=== PATIENT | female | born 1970 | race Caucasian/White ===

== ENCOUNTER → 2017-07-04 | Day surgery (SDC) | payer OTHER ==
[2017-06-15 10:25] VITALS: BMI 46.0
[~2017-07-04] VITALS: Ht 154.9 cm; Wt 111.4 kg
[~2017-07-04] MED LIST: ATROPINE SULFATE 0.1 MG/ML 5ML SYR IV PRN; BACITRACIN 50000 UNIT VIAL ONE; BACITRACIN OINT 15 GM TUBE ONE; CEFAZOLIN 2000MG IV PUSH 15 ML IV SCH; CEFAZOLIN SOD 2000MG/15 ML IV PUSH IV ONE; CEPH500C2 PO; CLR10 PO; COCAINE HCL 4% / 4 ML VIAL EXT ONE; COCAINE HCL 4% / 4 ML VIAL ONE; CRAN1CAP PO; CYAN500T PO; DEXAMETHASONE SOD INJ 4 MG/ML VIAL ONE; DTR/5 PO; EpHEDrine SULFATE INJ 50 MG/ML AMP IV PRN; FENTANYL CITRATE INJ 50 MCG/1 ML 2 ML VIAL IV PRN; FENTANYL CITRATE INJ 50 MCG/1 ML 2 ML VIAL ONE; FLOSEAL HEMOSTATIC MATRIX 5ML TOP ONE; FLUT0.15; GLYCOPYRROLATE INJ 0.2 MG/ML VIAL ONE; HYDR-5803 PO; HYDROCODONE/ACETAMINOPHEN 7.5/325MG TAB PO ONE; HYDROmorphone INJ 1 MG/ML SYR IV PRN; HydrALAZINE HCL 20 MG/ML VIAL ONE; LABETALOL HCL IV 5 MG/ML 20ML IV ONE; LABETALOL HCL IV 5 MG/ML 20ML IV PRN; LACTATED RINGER'S 1000ML 1,000 ML IV SCH; LARYING-O-JET KIT (LTA) ONE; LEVO200T PO; LIDOCAINE HCL 2% 2 ML VIAL (20MG/ML) ONE; LIDOCAINE/EPINEPHRINE 1% 20 ML VIAL ONE; LINA1CAP PO; MAGN400T6 PO; MEPERIDINE HCL 25 MG/ML CARP IV PRN; MIDAZOLAM HCL 1 MG/ML 2ML VIAL ONE; MULT-506 PO; MoRPHine SULFATE 2 MG/ML CARP IV PRN; NEOSTIGMINE METHYLSULFATE 5 MG/5 ML SYR ONE; NICO14DI9 TOP; NURSING VERBAL MED ORDER ONE; ONDANSETRON INJ 2 MG/ML 2 ML VIAL IV PRN; ONDANSETRON INJ 2 MG/ML 2 ML VIAL ONE; OXYMETAZOLINE HCL 0.05% NA SPR 15 ML BTL ONE; PARO1TAB27 PO; PHENYLEPHRINE 100MCG/ML 5ML SYR ONE; PROPOFOL IV EMULSION 10 MG/ML 20 ML VIAL IV ONE; RANI150T3 PO; ROCURONIUM BROMIDE 10 MG/ML 5 ML VIAL IV ONE; ROPI0.5T15 PO; SALINE NASAL GEL (AYR) 14.1 GM TUBE PRN; SODIUM CHLORIDE 0.9% 1000ML 1,000 ML IV SCH; SUMA50TA15 PO; THROMBIN 5000 UNITS KIT ONE; TOPI50TA16 PO; VALA1TAB2 PO; VNTHFA/IN INH
[2017-07-04 07:25] VITALS: BP 112/56; PULSE 62; TEMP 36.8; O2SAT 93; BMI 46.0
[2017-07-04 07:56] VITALS: Ht 154.9 cm; Wt 111.4 kg
--- NOTE | 2017-07-04 08:17 | History & Physical Bridge Note ---
H&P Re-Evaluation Bridge Note: I have examined the patient, reviewed the History & Physical and in the interval since the performance of the History & Physical I have noted the following changes of clinical significance: No changes noted
--- NOTE | 2017-07-04 08:24 | Discharge Instructions ---
Discharge Instructions Date of Service Jul 04, 2017. Admission Reason for Admission: Chronic Maxillary Sinusitis, Deviated Septum, B/L Discharge Discharge Diagnosis / Problem: Recurrent sinusitis, deviated nasal septum, turbinate hypertrophy. Discharge Goals Goal(s): Improve function Activity Recommendations Activity Limitations: as noted below Lifting Limitations: no more than 5 pounds Exercise/Sports Limitations: none May Resume Sexual Activity: after one week Shower/Bathe: no limitations Driving or Machine Use: No driving a motor vehicle while taking a narcotic. . Current Hospital Diet Patient's current hospital diet: Discharge Diet Recommended Diet: Regular Diet Pending Studies Studies pending at discharge: no Medical Emergencies . Who to Call and When: Medical Emergencies: If at any time you feel your situation is an emergency, please call 911 immediately. . Non-Emergent Contact Non-Emergency issues call your: Specialist Call Non-Emergent contact if: temperature is above 101.5 . . "Provider Documentation" section prepared by Titus Reagan. . VTE Core Measure Inpt VTE Proph given/why not?: SCD's
--- NOTE | 2017-07-04 10:46 | [facility] Post Operative Brief Note ---
Immediate Operative Summary Operative Date Jul 04, 2017. Pre-Operative Diagnosis Chronic sinusitis, deviated nasal septum, bilateral inferiorturbinate hypetrophy. Post-Operative Diagnosis Same Procedure(s) Performed Bilateral Anterior Ethmoidectomy, Left Maxillary Sinusotomy with Removal of Tissue, Right Maxillary Sinusotomy, Septoplasty, Bilateral Inferior Turbinate Reduction Surgeon Dr Reagan Exhaust Machine Operator Surgeon(s) none Estimated Blood Loss 75ml Findings Consistent with Post-Op Diagnosis Specimens none Drains None Anesthesia Type General Complication(s) none Disposition Accompanied Pt To Recover: no Disposition: Recovery Room / PACU
--- NOTE | 2017-07-04 11:19 | Anesthesiology Progress Note ---
Anesthesia Post Op Note Date & Time Jul 04, 2017 at 11:19 Vital Signs Pain Intensity: 0 Vital Signs Past 12 Hours Date Time Temp Pulse Resp B/P (MAP) Pulse Ox O2 Delivery O2 Flow Rate FiO2 07/04/17 11:10 68 16 137/74 97 Oxymask 3 07/04/17 11:00 68 16 120/45 96 Oxymask 5 07/04/17 10:51 36.1 74 18 141/85 93 Oxymask 10 07/04/17 07:25 36.8 62 18 112/56 (74) 93 Room Air Notes Mental Status: alert / awake / arousable, participated in evaluation Pt Amnestic to Procedure: Yes Nausea / Vomiting: adequately controlled Pain: adequately controlled Airway Patency, RR, SpO2: stable & adequate BP & HR: stable & adequate Hydration State: stable & adequate Anesthetic Complications: no major complications apparent
[2017-07-04 11:30] VITALS: BP 116/72; PULSE 60; TEMP 36.6; O2SAT 98
[2017-07-04 12:05] VITALS: BP 138/62; PULSE 82; O2SAT 96
--- NOTE | 2017-07-04 12:33 | OPERATIVE REPORT ---
DATE OF OPERATION: 07/04/2017 SURGEON: Dr. Reagan. ANESTHESIA: General via endotracheal tube. PROCEDURE PERFORMED: 1. Nasal and sinus surgical endoscopy using image guidance resulting in: A. Bilateral anterior ethmoidectomy (31116-08). B. Left maxillary sinusotomy with removal of retention cyst (53104). C. Right maxillary sinusotomy (76153). 2. Septoplasty (94308). 3. Bilateral inferior turbinate reduction (19615-72). INDICATIONS FOR THE PROCEDURE: This is a 47-year-old woman with recurrent acute sinusitis meeting criteria for nasal and sinus surgical endoscopy and she also suffers from nasal airway obstruction secondary to a deviated nasal septum and turbinate hypertrophy. Given the failure of medical management, the patient has opted for surgical management. A full informed consent including the indications, risks, benefits, and alternatives was provided in a relaxed office setting. There was an opportunity for questions and answers. PREOPERATIVE DIAGNOSES: 1. Chronic sinusitis. 2. Deviated nasal septum. 3. Bilateral inferior turbinate hypertrophy. POSTOPERATIVE DIAGNOSES: 1. Chronic sinusitis. 2. Deviated nasal septum. 3. Bilateral inferior turbinate hypertrophy. BLOOD LOSS: 75 mL. SPECIMENS SENT: None. COMPLICATIONS: None. SPONGE AND NEEDLE COUNT: Correct at the end the case. DESCRIPTION OF PROCEDURE: The patient had an uneventful endotracheal intubation via the PLASTIC EXTRUSION OPERATOR. The table was placed in reverse Trendelenburg position, the oropharynx was packed with a vaginal pack soaked in saline. The septum, inferior turbinates, middle turbinates, and anterior ethmoidal bullae were injected with 20 mL of 1% lidocaine 1:100,000 parts epinephrine. A 10 mL control syringe and a 25 gauge spinal needle were used to achieve this. After the injections, the middle meatus was packed with 2 neurosurgical pledgets soaked in 4% cocaine. An additional 2 neurosurgical pledgets per side were soaked in 0.05% oxymetazoline and placed in the nose. Equipment was readied, and the patient was draped while I scrubbed. About 5 minutes was allowed for vasoconstriction. First, attention was directed to the septum. A [place] incision was made on the left side of the nose and a mucoperichondrial flap was elevated. The quadrangular cartilage was disarticulated from the perpendicular plate of the ethmoid and the vomer using a [place] elevator. A small strip of quadrangular cartilage at its attachment of the maxillary crest was removed. Relaxing incisions were made in the quadrangular cartilage. Also, a deviated portion of the vomer and the left nasal airway was fractured back to the midline. The septum, which had previously been deviated to the left nasal airway was now in the midline. The incision was closed with running 4-0 chromic suture. After the sinus work was completed, Xomed bivalve splints were placed on each side of the septum, and held in place with a transseptal 2-0 silk suture. After completing the septoplasty, attention was directed to the inferior turbinates bilaterally. The identical procedure was done for each inferior turbinate. Using the microdebrider, the lateral mucosa of each inferior turbinate and submucosal bone was largely removed with the microdebrider. Remaining medial surface mucosa was then decreased in size using the Arthrocare coblation plasma 1 on a setting of 6 for coblation. There were 2 mucosal passes made on the medial surface of each inferior turbinate lasting 10 seconds each. There was 1 pass made on the remaining lateral surface lasting 10 seconds. This effected a nice reduction in inferior turbinate size bilaterally. The remaining part of the procedure was performed using the Fronto navigation system. The technique involved use of a 30 endoscope with surgical loops and surgical headlight used interchangeably. The anterior portion of the each middle turbinate was removed using first a curved tonsillar hemostat. Then, turbinate scissors were used to cut on the crush line. This provided excellent approach to the anterior ethmoidal bulla bilaterally which was entered with straight suction and then opened with the microdebrider. Bilaterally, the maxillary sinuses were entered with a curved suction tip and backbiting forceps were used to create wide sinusotomies. No tissue was removed from the right maxillary sinus. On the left maxillary sinus, there was a retention cyst that was removed with a curved [employer]uspheretronix microdebrider. The previous microdebrider work had been with a straight microdebrider. The curved microdebrider allowed for easy removal of the retention cyst of the left maxillary sinus. Any nuisance bleeding was stopped with suction electrocautery. The ethmoid defect was filled with FloSeal followed by a Nasopore, impregnated in bacitracin solution. Telfa was wrapped around straws and then dipped in bacitracin ointment and placed along the floor of the nose bilaterally. The patency of each straw was checked with a straight suction tip and the straws were patent. Mustache dressing was positioned. I removed the vaginal pack placed at the start of the case from the oropharynx. The oropharynx was irrigated with saline and I checked the oropharynx by suctioning with the [employer] suction to make sure there was no blood coming down from the nasopharynx to the oropharynx. There were no blood clots in the oropharynx or hypopharynx. There was no loose bone matter. I placed an oral airway under direct visualization for the PLASTIC EXTRUSION OPERATOR. With the patient breathing on her own, she was extubated and transported to recovery in no apparent distress. SUMMARY OF FINDINGS: 1. Deviated septum to the left side. 2. Bilateral inferior turbinate hypertrophy. 3. Minimally edematous ethmoid sinus mucosa. 4. Right maxillary sinus mucosa within normal limits. 5. A retention cyst, left maxillary sinus. CONDITION: The patient was transported to recovery in no apparent distress. I attest to the content of the Intraoperative Record and any orders documented therein. Any exceptions are noted below. MTDD
[2017-07-04 12:35] VITALS: BP 128/64; PULSE 80; O2SAT 96
[2017-07-04 13:05] VITALS: BP 126/65; PULSE 78; O2SAT 96
== END | disposition home or self-care (01) ==
LOC: C.ACU 07:17
PROVIDERS: ATTEND Otolaryngology
DX: J32.2 Chronic ethmoidal sinusitis (principal); J34.2 Deviated nasal septum; G47.33 Obstructive sleep apnea (adult) (pediatric); F17.210 Nicotine dependence, cigarettes, uncomplicated; E66.01 Morbid (severe) obesity due to excess calories; K21.9 Gastro-esophageal reflux disease without esophagitis; N30.40 Irradiation cystitis without hematuria; Z85.828 Personal history of other malignant neoplasm of skin; E03.9 Hypothyroidism, unspecified; K58.9 Irritable bowel syndrome, unspecified; Z85.850 Personal history of malignant neoplasm of thyroid; Z99.89 Dependence on other enabling machines and devices; Z90.710 Acquired absence of both cervix and uterus; Z90.49 Acquired absence of other specified parts of digestive tract

== ENCOUNTER 2017-09-07 12:47 | Emergency (ER) | payer OTHER ==
[~2017-09-07] VITALS: Ht 157.5 cm; Wt 112.0 kg
[~2017-09-07 12:47] MED LIST changes: -ATROPINE SULFATE 0.1 MG/ML 5ML SYR IV PRN; -BACITRACIN 50000 UNIT VIAL ONE; -BACITRACIN OINT 15 GM TUBE ONE; -CEFAZOLIN 2000MG IV PUSH 15 ML IV SCH; -CEFAZOLIN SOD 2000MG/15 ML IV PUSH IV ONE; -COCAINE HCL 4% / 4 ML VIAL EXT ONE; -COCAINE HCL 4% / 4 ML VIAL ONE; -DEXAMETHASONE SOD INJ 4 MG/ML VIAL ONE; -EpHEDrine SULFATE INJ 50 MG/ML AMP IV PRN; -FENTANYL CITRATE INJ 50 MCG/1 ML 2 ML VIAL IV PRN; -FENTANYL CITRATE INJ 50 MCG/1 ML 2 ML VIAL ONE; -FLOSEAL HEMOSTATIC MATRIX 5ML TOP ONE; -GLYCOPYRROLATE INJ 0.2 MG/ML VIAL ONE; -HYDROCODONE/ACETAMINOPHEN 7.5/325MG TAB PO ONE; -HYDROmorphone INJ 1 MG/ML SYR IV PRN; -HydrALAZINE HCL 20 MG/ML VIAL ONE; -LABETALOL HCL IV 5 MG/ML 20ML IV ONE; -LABETALOL HCL IV 5 MG/ML 20ML IV PRN; -LACTATED RINGER'S 1000ML 1,000 ML IV SCH; -LARYING-O-JET KIT (LTA) ONE; -LIDOCAINE HCL 2% 2 ML VIAL (20MG/ML) ONE; -LIDOCAINE/EPINEPHRINE 1% 20 ML VIAL ONE; -MEPERIDINE HCL 25 MG/ML CARP IV PRN; -MIDAZOLAM HCL 1 MG/ML 2ML VIAL ONE; -MoRPHine SULFATE 2 MG/ML CARP IV PRN; -NEOSTIGMINE METHYLSULFATE 5 MG/5 ML SYR ONE; -NURSING VERBAL MED ORDER ONE; -ONDANSETRON INJ 2 MG/ML 2 ML VIAL IV PRN; -ONDANSETRON INJ 2 MG/ML 2 ML VIAL ONE; -OXYMETAZOLINE HCL 0.05% NA SPR 15 ML BTL ONE; -PHENYLEPHRINE 100MCG/ML 5ML SYR ONE; -PROPOFOL IV EMULSION 10 MG/ML 20 ML VIAL IV ONE; -ROCURONIUM BROMIDE 10 MG/ML 5 ML VIAL IV ONE; -SALINE NASAL GEL (AYR) 14.1 GM TUBE PRN; -SODIUM CHLORIDE 0.9% 1000ML 1,000 ML IV SCH; -THROMBIN 5000 UNITS KIT ONE
[2017-09-07 12:53] VITALS: TEMP 36.7; Ht 157.5 cm; Wt 112.0 kg
[2017-09-07] MEDS ORDERED: SODIUM CHLORIDE 0.9% 1000ML 1,000 ML IV STA (14:04)
[2017-09-07 14:32] LABS: BASO % 0.4 %; BASO ABS # 0.03 K/uL (0-0.2); EOS % 1.5 %; EOS ABS # 0.11 K/uL (0-0.5); HEMATOCRIT 40.7 % (37-47); HEMOGLOBIN 14.3 g/dL (12.0-16.0); IG# 0.03 K/uL (0.00-0.02); LYMPH % 39.9 %; LYMPH ABS # 2.96 K/uL (1.2-3.4); MEAN CELL VOLUME 89.6 fL (80-100); MEAN CORPUSCULAR HEMOGLOBIN 31.5 pg (25-34); MEAN CORPUSCULAR HGB CONC 35.1 g/dl (32-36); MEAN PLATELET VOLUME 10.6 fL (7.4-10.4); MONO % 7.7 %; MONO ABS # 0.57 K/uL (0.11-0.59); NEUT % 50.1 %; NEUT ABS # 3.72 K/uL (1.4-6.5); PLATELET COUNT 236 K/uL (130-400); RED CELL DISTRIBUTION WIDTH SD 42.3 fL (36.4-46.3); WHITE BLOOD COUNT 7.42 K/uL (4.8-10.8)
--- NOTE | 2017-09-07 14:47 | DIAGNOSTIC IMAGING REPORT ---
L SHOULDER MIN 2 VIEWS ROUTINE HISTORY: 47 years-old Female L shoulder and neck pain acute left shoulder pain COMPARISON: Chest radiograph of same day TECHNIQUE: 3 views of the left shoulder FINDINGS: Mild degenerative changes about the AC joint. No acute fracture, dislocation or significant glenohumeral degenerative changes. Imaged lung aguilera appear clear. No opaque foreign body or acute displaced rib fracture. IMPRESSION: 1. No acute fracture or dislocation. 2. Mild degenerative changes of the left AC joint. The above report was generated using voice recognition software. It may contain grammatical, syntax or spelling errors. Electronically signed by: Kolby Bush M.D. 09/07/2017 2:46 PM Dictated Date/Time: 09/07/2017 2:45 PM
--- NOTE | 2017-09-07 14:48 | DIAGNOSTIC IMAGING REPORT ---
CHEST 1 VW FRONT-NOT PORTABLE HISTORY: 47 years-old Female CHEST PAIN acute atypical chest pain COMPARISON: Left shoulder radiographs of same day TECHNIQUE: PA view of the chest FINDINGS: Cardiomediastinal and hilar silhouettes are within normal limits. There is no pneumothorax, pleural effusion, focal airspace consolidation or overt pulmonary edema. The bones of the chest appear grossly intact. IMPRESSION: No acute process. The above report was generated using voice recognition software. It may contain grammatical, syntax or spelling errors. Electronically signed by: Kolby Bush M.D. 09/07/2017 2:47 PM Dictated Date/Time: 09/07/2017 2:46 PM
[2017-09-07 14:51] LABS: ALBUMIN 3.8 gm/dl (3.4-5.0); ALT/SGPT 54 U/L (12-78); AST/SGOT 27 U/L (15-37); BLOOD UREA NITROGEN 15 mg/dl (7-18); CALCIUM 9.1 mg/dl (8.5-10.1); CARBON DIOXIDE 27 mmol/L (21-32); CREATININE 0.89 mg/dl (0.60-1.20); GLUCOSE 81 mg/dl (70-99); LIPASE 71 U/L (73-393); POTASSIUM 3.5 mmol/L (3.5-5.1); SODIUM 138 mmol/L (136-145)
--- NOTE | 2017-09-07 14:51 | DIAGNOSTIC IMAGING REPORT ---
CERVICAL SPINE 6 VIEWS CLINICAL HISTORY: Neck pain and left shoulder pain. FINDINGS: AP, lateral, bilateral oblique, swimmer's, and odontoid views of the cervical spine are obtained. No prior studies are available for comparison at the time of dictation. The skeletal structures are well mineralized. There is no radiographic evidence of fracture or subluxation. The odontoid process and lateral masses appear intact on the open mouth view. The spinolaminar line is preserved. Vertebral body height and alignment are maintained. There is straightening of the cervical lordosis. Small anterior osteophytes are seen in the lower cervical spine. The spinous processes appear intact. The intervertebral disc spaces are maintained. A posterior disc osteophyte complex at C5-C6 may contribute to mild acquired compromise the central canal. There is no evidence of neuroforaminal stenosis on the oblique views. The prevertebral soft tissues are within normal limits. Visualized apical lung parenchyma appears clear. IMPRESSION: 1. No acute bony abnormality is seen involving the cervical spine. 2. Mild spondylotic change as above, greatest at C5-C6. Electronically signed by: Christian Perry M.D. 09/07/2017 2:49 PM Dictated Date/Time: 09/07/2017 2:48 PM
[2017-09-07 14:53] LABS: ALKALINE PHOSPHATASE 89 U/L (45-117); TOTAL PROTEIN 7.7 gm/dl (6.4-8.2)
[2017-09-07 16:01] VITALS: BP 101/54; PULSE 63; O2SAT 95
--- NOTE | 2017-09-07 20:45 | EMERGENCY ROOM VISIT NOTE ---
ED Visit Note First contact with patient: 13:33 Chief Complaint: Left arm pain. History of Present Illness: Ms. Barrios is a 47 year-old white female who ambulates into the ED accompanied by her mother complaining of left arm pain. Historically patient reports no history of individual cardiovascular disease or first-degree family coronary artery disease, but does report multiple grandparents on both sides of the family had heart disease of unspecified etiology. Patient's risk factors include obesity, tobacco use and dyslipidemia. Patient reports she awoke this morning her normal self and was getting ready for work when she reports she had a acute onset of left upper extremity pain. She reports her pain started in the forearm and gradually went into the upper arm, shoulder and then the upper left chest. She reports this episode lasted about 2 hours and then self resolved and we returned to additional times during the day. She describes her pain as a soreness sensation. Currently she rates her discomfort 4/10. Her pain is minimally aggravated with movements of the elbow and shoulder and with palpation of the mid forearm, proximal radius and left upper anterior chest. She has not identified any alleviating factors related to this discomfort. She has not taken any medications for her discomfort prior to arrival at the hospital. She denies any associated fevers, chills, sweats, skin eruptions, skin color changes, upper respiratory tract symptoms, wheezing, cough, shortness of breath, orthopnea, dependent edema, previous clots, claudication, cramping, recent surgery/inactivity/extended travel, abdominal pain, nausea, vomiting, diarrhea, constipation, rectal bleeding, black/tarry stools, urinary symptoms, back/flank pain. Review of Systems: As noted above in history of present illness. All body systems were reviewed and found to be negative as noted above. Past Medical History: Anxiety, hidradenitis, cystitis, sleep apnea, regional enteritis, irritable bowel syndrome, obesity, sinusitis, chronic rhinitis, nasal septum deviation, migraine headaches, skin cancer, cervical cancer, thyroid cancer with postsurgical hypothyroidism, esophageal reflux, status post carpal tunnel release, cholecystectomy, D&C, hysterectomy, section. Current Medications: Medications Dose Route/Sig Max Daily Dose Days Date Category Claritin (Loratadine) 10 Mg Tab 10 Mg PO QAM 06/15/17 Reported Multivitamin (Multivitamins) Tab 1 Tab PO HS 06/15/17 Reported Nicotine 14 Mg/24 Hr Dis 1 Patch TOP DAILY 06/15/17 Reported Flonase Allergy Relief (Fluticasone Propionate (Nasal)) 50 Mcg/Act Spr 2 Sprays NA QAM 06/15/17 Reported Vitamin B-12 (Cyanocobalamin) 500 Mcg Tab 500 Mcg PO QAM 06/15/17 Reported Ventolin Hfa (Albuterol) 200 Puffs/88336 Mcg Aers 2 Puffs INH Q6H PRN 06/15/17 Reported Mag-Ox (Magnesium Oxide) 400 Mg Tab 400 Mg PO QAM 06/15/17 Reported Valtrex (Valacyclovir Hcl) 1 Gm Tab 1,000 Mg PO BID PRN 06/15/17 Reported Linzess (Linaclotide) 145 Mcg Cap 145 Mcg PO QAM 06/15/17 Reported Zantac (Ranitidine HCl) 150 Mg Tab 150 Mg PO BID 06/15/17 Reported Ditropan (Oxybutynin Chloride) 5 Mg Tab 5 Mg PO HS 06/15/17 Reported Requip (Ropinirole HCl) 0.5 Mg Tab 0.5 Mg PO HS 06/15/17 Reported Imitrex (Sumatriptan Succinate) 50 Mg Tab 50 Mg PO PRN PRN 06/15/17 Reported Paxil (Paroxetine HCl) 20 Mg Tab 20 Mg PO QPM 06/15/17 Reported Topamax (Topiramate) 50 Mg Tab 50 Mg PO DAILY PRN 06/15/17 Reported Cranberry Concentrate (Cranberry-Vitamin C-Vitamin E) 1 Cap Cap 1 Cap PO QAM 06/15/17 Reported Synthroid (Levothyroxine Sodium) 200 Mcg Tab 200 Mcg PO QAM 06/15/17 Reported Allergies to Medications: Modafinil. Social History: Patient is currently employed; she feels safe in her home environment; she admits to tobacco use. Physical Examination: Vital Signs: Date Time Temp Pulse Resp B/P (MAP) Pulse Ox O2 Delivery O2 Flow Rate FiO2 09/07/17 16:01 63 22 101/54 95 Room Air 09/07/17 14:07 59 09/07/17 14:05 59 18 101/58 98 Room Air 09/07/17 12:53 36.7 63 16 143/87 100 Room Air GENERAL: 47-year-old female in mild distress due to pain, nontoxic-appearing, afebrile and hemodynamically stable. NEUROLOGICAL: Awake, alert and oriented to person, place and time. Answering questions appropriately and following commands. Normal gait. Good hand eye coordination. SKIN: Warm, dry and pink. No soft tissue eruptions or trauma noted. HEENT: Atraumatic and normocephalic. PERRLA. Sclera white and conjunctiva pink. Oral cavity moist and pink. Pharynx is nonerythematous or edematous. Speech normal. No lymphadenopathy. Trachea midline. No jugular venous distention. No carotid bruits. BACK: No tenderness over the bony spine. No CVA tenderness. THORAX: Lungs sounds are clear to auscultation and equal bilaterally with symmetrical chest wall. No wheezing, rales or rhonchi. No crepitus, tenderness , subcutaneous air or deformities noted. HEART: Regular rate and rhythm. No gallops, rubs or murmurs are appreciated. No lifts, heaves or thrills. PMI is not displaced. ABDOMEN: Obese, soft and nontender. Positive bowel sounds in all quadrants. No guarding, rigidity or organomegaly. EXTREMITIES: Moves all extremities well on command and with purpose. All distal neurovascular statuses are intact and equal bilaterally. No dependent edema or calf tenderness/cords. ED Course: Patient is assessed as noted above. Patient's medication list was reviewed. Laboratory Testing: Test 09/07/17 14:13 09/07/17 14:23 09/07/17 16:08 Range/Units White Blood Count 7.42 4.8-10.8 K/uL Red Blood Count 4.54 4.2-5.4 M/uL Hemoglobin 14.3 12.0-16.0 g/dL Hematocrit 40.7 37-47 % Mean Corpuscular Volume 89.6 80-100 fL Mean Corpuscular Hemoglobin 31.5 25-34 pg Mean Corpuscular Hemoglobin Concent 35.1 32-36 g/dl Platelet Count 236 130-400 K/uL Mean Platelet Volume 10.6 7.4-10.4 fL Neutrophils (%) (Auto) 50.1 % Lymphocytes (%) (Auto) 39.9 % Monocytes (%) (Auto) 7.7 % Eosinophils (%) (Auto) 1.5 % Basophils (%) (Auto) 0.4 % Neutrophils # (Auto) 3.72 1.4-6.5 K/uL Lymphocytes # (Auto) 2.96 1.2-3.4 K/uL Monocytes # (Auto) 0.57 0.11-0.59 K/uL Eosinophils # (Auto) 0.11 0-0.5 K/uL Basophils # (Auto) 0.03 0-0.2 K/uL RDW Standard Deviation 42.3 36.4-46.3 fL RDW Coefficient of Variation 13.0 11.5-14.5 % Immature Granulocyte % (Auto) 0.4 % Immature Granulocyte # (Auto) 0.03 0.00-0.02 K/uL Sodium Level 138 136-145 mmol/L Potassium Level 3.5 3.5-5.1 mmol/L Chloride Level 108 98-107 mmol/L Carbon Dioxide Level 27 21-32 mmol/L Anion Gap 3.0 3-11 mmol/L Blood Urea Nitrogen 15 7-18 mg/dl Creatinine 0.89 0.60-1.20 mg/dl Est Creatinine Clear Calc Drug Dose 93.4 ml/min Estimated GFR () 90.1 Estimated GFR (Non- 77.7 BUN/Creatinine Ratio 16.6 10-20 Random Glucose 81 70-99 mg/dl Calcium Level 9.1 8.5-10.1 mg/dl Total Bilirubin 0.3 0.2-1 mg/dl Direct Bilirubin < 0.1 0-0.2 mg/dl Aspartate Amino Transf (AST/SGOT) 27 15-37 U/L Alanine Aminotransferase (ALT/SGPT) 54 12-78 U/L Alkaline Phosphatase 89 45-117 U/L Total Protein 7.7 6.4-8.2 gm/dl Albumin 3.8 3.4-5.0 gm/dl Lipase 71 73-393 U/L Bedside Troponin I < 0.030 < 0.030 0-0.045 ng/ml Chest X-Ray: Was read by myself and the radiologist and shows no acute infiltrates, effusions or pneumothorax. Normal heart silhouette and bony anatomy. Left Shoulder X-Rays: Was read by myself and the radiologist showing no acute fractures or dislocations. Radiologist notes mild degenerative changes of the left acromion clavicular joint. Cervical Spine X-Rays: Were read by myself and the radiologist showing no acute bony abnormalities, mild spondylotic changes greatest at C5-C6 area. EKG #1: 1402 was read by myself and reviewed with Dr. Silva; shows sinus bradycardia with a ventricular rate of 53 bpm. Normal axis, intervals and complexes. No acute ST changes indicating ischemia, injury or infarction. Medical records were reviewed and there were no previous for comparison. EKG #2: 1548 was read by myself and reviewed with Dr. Silva; shows sinus bradycardia with a ventricular rate of 56 bpm. Normal axis, intervals and complexes. No acute ST changes indicating ischemia, injury or infarction. This was compared to her previous and no acute changes were noted. Patient was hydrated with normal saline; she was offered pain medication and refused. Patient was reassessed multiple times during her stay in the emergency department. Patient's case was reviewed with Dr. Silva; we agreed on diagnostic approach, treatment, disposition and plan. Patient was educated about today's findings and instructed on her treatment plan ; she verbalized understanding and agreement with this plan. Clinical Impression: Left upper extremity pain. Decision-Making: Initially my differential diagnosis I considered acute coronary syndrome, shoulder/elbow arthritis, radicular cervical spine symptoms, muscle strain, and other causes. Disposition: Patient discharged home in stable condition accompanied by her mother; prior to departure she was reassessed and subjectively reported that she was pain and symptom-free. Plan: Patient was encouraged alternate ibuprofen and acetaminophen every 3 hours as needed for pain. Patient was encouraged use ice on areas of pain 5-6 times a day for 20-30 minutes. Patient was encouraged to rest her arm and avoid strenuous physical activities. Patient was encouraged to follow-up with her PCP for recheck in 2-3 days if no better. Patient was encouraged to return to the ED for worsening/uncontrolled pain, chest pain, shortness of breath, arm weakness/numbness/tingling or any new/ concerning symptoms.
== END 2017-09-07 16:32 | disposition home or self-care (01) ==
LOC: C.EDB 12:48
DX: M79.602 Pain in left arm (principal); E66.9 Obesity, unspecified; E78.5 Hyperlipidemia, unspecified; Z72.0 Tobacco use; F41.9 Anxiety disorder, unspecified; K58.9 Irritable bowel syndrome, unspecified; K21.9 Gastro-esophageal reflux disease without esophagitis; Z85.41 Personal history of malignant neoplasm of cervix uteri; Z85.828 Personal history of other malignant neoplasm of skin; Z85.850 Personal history of malignant neoplasm of thyroid; Z79.899 Other long term (current) drug therapy; Z88.8 Allergy status to other drugs, medicaments and biological substances